=== PATIENT | female | born 1960 | race Caucasian/White ===

== ENCOUNTER → 2016-09-13 | Outpatient (CLI) | payer MEDICAID, OTHER ==
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
== END ==
LOC: CIMAGING 09:12
PROVIDERS: ATTEND Registered Nurse
DX: M50.322 Other cervical disc degeneration at C5-C6 level (principal); G89.29 Other chronic pain; M54.12 Radiculopathy, cervical region; M51.36 Other intervertebral disc degeneration, lumbar region; M79.7 Fibromyalgia
CPT/HCPCS: 72050-PO

== ENCOUNTER 2018-01-08 10:47 | Emergency (ER) | payer OTHER ==
[2018-01-08 11:06] VITALS: BP 120/81
--- NOTE | 2018-01-08 11:51 | EDPHY ---
H & P Time Seen by Provider: 01/08/18 11:24 HPI/ROS: CHIEF COMPLAINT: Finger injury HISTORY OF PRESENT ILLNESS: 57-year-old female was putting her cane into the car when she came to the small finger of her right hand. She reports striking the finger directly the tip. No crush injury. Finger was not caught in the door. She struck it on the door frame. She has pain and tenderness at the PIP joint to distal phalanx. No open lacerations. No bleeding. Patient was otherwise well. REVIEW OF SYSTEMS: Aside from elements discussed in the HPI, a comprehensive 10-point review of systems was reviewed and is negative. PAST MEDICAL HISTORY: History of chronic pain, on opiates and fentanyl patch, has a pain contract. SOCIAL HISTORY: Former smoker, here with a family member. GENERAL APPEARANCE: Alert, well developed, reporting moderate pain in her finger. FOCUSED EXAM OF right hand: There is moderate swelling over the finger tip pad the right 5th finger. Discomfort and limitation of movement at the PIP joint. No obvious dislocation. Finger is slightly rotated ulnarly. No tenderness at the MCP or PIP joint. No tenderness over the metacarpal, proximal and middle phalanx. Radius and ulnar pulses intact. Brisk capillary refill at the 5th digit. 2 point sensation intact. Smoking Status: Former smoker Constitutional: Initial Vital Signs Temperature (C) 36.8 C 01/08/18 11:04 Heart Rate 80 01/08/18 11:04 Respiratory Rate 18 01/08/18 11:04 Blood Pressure 120/81 H 01/08/18 11:04 O2 Sat (%) 90 L 01/08/18 11:04 O2 Delivery Mode Room Air Allergies/Adverse Reactions: latex Allergy (Verified 03/22/14 16:53) Penicillins Allergy (Verified 10/30/11 18:57) Tetanus & Diphthe *RETIRED-04/28/12 [Tetanus & Diphtheria Tox,Adult] Allergy ( Verified 10/30/11 18:57) Home Medications: Medication Instructions Recorded Escitalopram Oxalate [Lexapro] 10 mg PO 10/30/11 Lorazepam 1 mg PO 10/30/11 Oxycodone HCl Ir 03/22/14 Promethazine HCl 03/22/14 MDM/Departure - MDM Imaging Results: XRay: Impression: Negative for fracture. Dictated By: Tom Dempsey MD ED Course/Re-evaluation: X-ray negative for fracture. No dislocation. Advised to use ibuprofen for pain. Advised to apply ice to the finger pad to help diminish the swelling. Offer the patient a digital block for pain relief. Patient tolerated half of the digital block, with 2 cc of bupivacaine instilled along the radial side of the 5th digit at the MCP. She did not want to have a me to infiltrate bupivacaine on the ulnar side. Placed in a aluminum splint as the patient does have some rotational malalignment of the finger. Procedure: Splint placement. A aluminum splint was applied. After application of the splint I returned and re-examined the patient. The splint was adequately immobilizing the joint and distal to the splint the patient's circulation and sensation was intact. Differential Diagnosis: Differential diagnosis for the patient's injury was considered including but not limited to contusion, abrasion, laceration, dislocation, sprain, fracture, open fracture, or dislocation. - Depart Disposition: Home, Routine, Self-Care Clinical Impression: Jammed interphalangeal joint of finger of right hand Qualifiers: Encounter type: initial encounter Qualified Code(s): S69.91XA - Unspecified injury of right wrist, hand and finger(s), initial encounter Condition: Good Instructions: Jammed Finger (ED) Additional Instructions: Mainstay of therapy is rest, ice, elevation, and nonsteroidal anti- inflammatories for pain and to decrease swelling. Apply ice for 20-30 minutes every 2-3 hours for the next 48 hours. I recommend Ibuprofen (Motrin, Advil) or Naproxen Sodium (Aleve) for pain and anti-inflammatory effects. You may take either one, but do not take both. Your dose is: Ibuprofen 600 mg every 6-8 hours with food. OR Naproxen Sodium (Aleve) 220 mg every 12 hours. Followup with the your primary care physician if not improving as expected. Referrals: Theron Ritter, DO [Primary Care Provider] - As per Instructions
== END 2018-01-08 11:55 | disposition home or self-care (01) ==
LOC: CED 10:47
DX: S69.91XA Unspecified injury of right wrist, hand and finger(s), initial encounter (principal); Z87.891 Personal history of nicotine dependence; Z91.040 Latex allergy status; W23.0XXA Caught, crushed, jammed, or pinched between moving objects, initial encounter
CPT/HCPCS: 73130; 99283; L3925

== ENCOUNTER → 2018-07-31 | Outpatient (CLI) | payer OTHER | LOC: CIMAGING 08:40 | PROVIDERS: ATTEND Family Medicine | DX: R93.421 Abnormal radiologic findings on diagnostic imaging of right kidney (principal) | CPT/HCPCS: 76705-PO ==